=== PATIENT | female | born 1985 | race Caucasian/White ===

== ENCOUNTER 2016-12-07 07:49 | Inpatient (IN) | payer OTHER ==
[2016-12-07] MEDS ORDERED: Misoprostol TAB* 100 MCG VAGINAL ONE (08:55)
[2016-12-07] MEDS ORDERED: Misoprostol TAB* 100 MCG PO ONE (16:06)
[2016-12-07] MEDS ORDERED: OBEPIDURAL* 250 ML ONE (23:04)
[2016-12-07 23:15] LABS: Hematocrit 39 % (35-47); Mean Corpuscular HGB Conc 33 g/dl (31-36); Mean Corpuscular Hemoglobin 30 pg (27-31); Mean Corpuscular Volume 91 fL (80-97); Mean Platelet Volume 11 um3 (7.4-10.4); Red Blood Count 4.29 10^6/ul (4.0-5.4); Red Cell Distribution Width 14 % (10.5-15); White Blood Count 12.9 10^3/ul (3.5-10.8)
[2016-12-08] MEDS ORDERED: EPHEDrine (Pressors)* 50 MG/ML VIAL IV PUSH PRN ×2 (00:01)
[2016-12-08] MEDS ORDERED: Famotidine TAB* 20 MG PO PRN (00:01)
[2016-12-08] MEDS ORDERED: Phenylephrine IV* 40 MCG/ML 10 ML SYRINGE IV PUSH PRN ×2 (00:01)
[2016-12-08] MEDS ORDERED: Sodium Citrate/Citric Acid* 15 ML UDC PO PRN (00:01)
[2016-12-08] MEDS ORDERED: OBEPIDURAL* 250 ML EPIDURAL SCH (01:00)
[2016-12-08] MEDS ORDERED: Oxytocin in LR* 20 UNITS/1,000 ML BAG IVPB ONE (06:55)
[2016-12-08] MEDS ORDERED: Oxytocin in LR* 20 UNITS/1,000 ML BAG IVPB SCH ×2 (07:00→12:00)
[2016-12-08] MEDS ORDERED: Sodium Citrate/Citric Acid* 15 ML UDC ONE (09:20)
[2016-12-08] MEDS ORDERED: ceFOXitin 2 GM IVPREMIX* 2 GM/50 ML BAG ONE (09:20)
[2016-12-08] MEDS ORDERED: ceFOXitin 2 GM IVPREMIX* 2 GM/50 ML BAG IVPB ONE (09:27)
[2016-12-08] MEDS ORDERED: Morphine PF AMP (0.5MG/ML)* 5 MG/10 ML AMP ONE (09:27)
[2016-12-08] MEDS ORDERED: Sodium Citrate/Citric Acid* 15 ML UDC PO ONE (09:27)
[2016-12-08] MEDS ORDERED: OXYTOCIN* 10 UNITS/ML 1 ML VIAL ONE (09:58)
[2016-12-08] MEDS ORDERED: Ondansetron INJ* 2 MG/ML VIAL IV PRN (10:31)
[2016-12-08] MEDS ORDERED: oxyCODONE/Acetamin 5/325 MG* TAB PO PRN (10:31)
[2016-12-08] MEDS ORDERED: Naloxone* 0.4 MG/ML 1 ML VIAL IV PRN (10:31)
[2016-12-08] MEDS ORDERED: Nalbuphine* 20 MG/ML 1 ML VIAL IV PRN (10:31)
[2016-12-08] MEDS ORDERED: Dibucaine 1% 28.35 GM TUBE PR PRN (11:31)
[2016-12-08] MEDS ORDERED: Acetaminophen TAB* 325 MG PO PRN (11:31)
[2016-12-08] MEDS ORDERED: Glycerin ADULT SUPP PR PRN (11:31)
[2016-12-08] MEDS ORDERED: Witch Hazel PAD* JAR TOPICAL PRN (11:31)
[2016-12-08] MEDS: Ibuprofen TAB* 400 MG PO SCH (13:02)
[2016-12-08] MEDS: Simethicone CHEW TAB* 80 MG PO SCH ×2 (13:58→17:17)
[2016-12-08] MEDS: Docusate CAP* 100 MG PO SCH (14:57)
[2016-12-09] MEDS: Docusate CAP* 100 MG PO SCH ×4 (00:24→20:30)
[2016-12-09] MEDS: Simethicone CHEW TAB* 80 MG PO SCH ×5 (00:24→20:31)
[2016-12-09] MEDS: Ibuprofen TAB* 400 MG PO SCH (00:45)
[2016-12-09 05:58] LABS: Hematocrit 31 % (35-47); Hemoglobin 10.2 g/dl (12.0-16.0); Mean Corpuscular HGB Conc 33 g/dl (31-36); Mean Corpuscular Hemoglobin 31 pg (27-31); Mean Corpuscular Volume 93 fL (80-97); Mean Platelet Volume 11 um3 (7.4-10.4); Red Blood Count 3.33 10^6/ul (4.0-5.4); Red Cell Distribution Width 14 % (10.5-15); White Blood Count 11.2 10^3/ul (3.5-10.8)
[2016-12-09] MEDS: Ibuprofen TAB* 600 MG PO PRN ×3 (07:55→20:31)
[2016-12-09] MEDS: oxyCODONE/Acetamin 5/325 MG* TAB PO PRN ×4 (07:56→20:31)
[2016-12-09] MEDS ORDERED: Ferrous Gluconate TAB* 324 MG TAB PO SCH (09:00)
[2016-12-10] MEDS: oxyCODONE/Acetamin 5/325 MG* TAB PO PRN ×6 (00:39→23:54)
[2016-12-10] MEDS: Ibuprofen TAB* 600 MG PO PRN ×4 (04:05→23:54)
[2016-12-10] MEDS: Docusate CAP* 100 MG PO SCH ×3 (09:22→21:16)
[2016-12-10] MEDS: Simethicone CHEW TAB* 80 MG PO SCH ×4 (09:23→21:16)
[2016-12-10 21:05] VITALS: BP 107/69
[2016-12-11] MEDS: oxyCODONE/Acetamin 5/325 MG* TAB PO PRN ×2 (03:48→09:08)
[2016-12-11] MEDS: Simethicone CHEW TAB* 80 MG PO SCH (09:03)
[2016-12-11] MEDS: Ibuprofen TAB* 600 MG PO PRN (09:03)
[2016-12-11] MEDS: Docusate CAP* 100 MG PO SCH (09:03)
--- NOTE | 2016-12-12 09:47 | OP ---
OPERATIVE REPORT: DATE OF OPERATION: 12/08/16 DATE OF : 87 SURGEON: Valeria Rider MD. SOAP MIXER: Trina Fox CNM. ANESTHESIOLOGIST: Dr. León. ANESTHESIA: Spinal. PRE-OP DIAGNOSIS: A 41 weeks 5 days gestation, fully dilated, category-II heart tracing, swati te from delivery, the patient had just started pushing. POST-OP DIAGNOSIS: A 41 weeks 5 days gestation, fully dilated, category-II heart tracing, rem ote from delivery, the patient had just started pushing. PROCEDURE: Primary low-flap transverse section via Pfannenstiel. Uterus closed in 2 layer s. ESTIMATED BLOOD LOSS: 600 cc. URINE OUTPUT: 700 cc clear urine. FINDINGS: Viable male infant in a vertex presentation, clear amniotic fluid. Apgars were 9 and 9. The cord was around the neck x2. Baby's weight was 9 pounds 3 ounces. Normal-appearing uterus, nor mal-appearing ovaries bilaterally, normal- appearing fallopian tubes bilaterally. COMPLICATIONS: None. COUNTS: Sponge, lap, and needle count were correct x2. CONDITION: The patient was brought to the recovery room awake and in stable condition. DESCRIPTION OF PROCEDURE: The patient was brought to the operating room. A Nolasco catheter had alre mireya been placed under sterile conditions in labor. When spinal was found to be adequate, the heart rate was checked and was found to be below 100. The patient was prepped and draped in the usu al sterile fashion. Time- out was performed and the spinal was tested with the Allis clamp and foun d to be adequate. A Pfannenstiel skin incision was made approximately 2 cm above the symphysis pubi s. This was carried down to the underlying layer of fascia. The fascia was incised in the midline and the fascial incision was extended laterally with the Lynch scissors. The rectus muscle was disse cted using sharp and blunt dissection. The rectus muscle was found to be in the midline. The peritoneum was identified. The peritoneum was tented up and entered bluntly. The peritoneal i ncision was extended bluntly. The bladder blade was inserted. The vesicouterine peritoneum was kyrie ntified and a bladder flap was created. Bladder blade was reinserted. A low-flap transverse incisi on was made on the uterus to the level of the membranes. The uterine incision was extended laterall y bluntly. Clear amniotic fluid was encountered. The infant was delivered atraumatically from the v ertex presentation. Cord around the neck x2 was reduced. Baby was delivered. The baby was vigorous . The cord was milked. The cord was clamped and cut and the was handed off to the [facility] eonatologist, Dr. Diego. Apgars were 9 and 9. The placenta was delivered. The uterus was exte riorized. The uterus was cleared of all clots and debris and the uterine incision was repaired usin g 0 Vicryl in a running locked fashion. A second layer of the same suture was used to imbricate and obtain excellent hemostasis. The abdomen and pelvis were copiously irrigated with warm normal sali ne. The ovaries and fallopian tubes were examined and found to be normal. The uterine incision was examined and found to be hemostatic. The uterus was returned to the pelvis. The gutters were bill red of all clots and debris and once again the uterine incision was examined and found to be hemosta tic. The peritoneum was closed with 3-0 Vicryl. The subfascial layer was examined and found to be hemostatic. The fascia was closed with 0 Vicryl. The subcutaneous tissue was irrigated, any small bleeders were cauterized with the Bovie and the skin was closed with 4-0 Monocryl in a subcuticular fashion. Steri- Strips were applied. A pressure dressing was applied and the patient was brought t o the recovery room awake and in stable condition. [id number]/[facility] #: [id number]
== END 2016-12-11 11:18 | disposition home or self-care (01) | DRG 540 ==
LOC: MCHOBOUT 07:49 → MCHOB 20:17
PROVIDERS: ADMIT Nurse Practitioner; ATTEND Obstetrics & Gynecology
PROC: 10D00Z1 Extraction of Products of Conception, Low, Open Approach (ICD-10-PCS; principal; 2016-12-07)
PROC: 4A1HX4Z Monitoring of Products of Conception, Cardiac Electrical Activity, External Approach (ICD-10-PCS; 2016-12-07)
PROC: 3E033VJ Introduction of Other Hormone into Peripheral Vein, Percutaneous Approach (ICD-10-PCS; 2016-12-07)
DX: O48.0 Post-term pregnancy (principal); O76 Abnormality in fetal heart rate and rhythm complicating labor and delivery; Z3A.41 41 weeks gestation of pregnancy; Z37.0 Single live birth; O69.1XX0 Labor and delivery complicated by cord around neck, with compression, not applicable or unspecified; Z83.3 Family history of diabetes mellitus; Z82.49 Family history of ischemic heart disease and other diseases of the circulatory system
CPT/HCPCS: 36415; 85025; 86850; 86900; 86901; A9270-GY; J0694; J2590; S0191